=== PATIENT | male | born 1935 | race Caucasian/White ===

== ENCOUNTER 2019-09-13 09:20 | Day surgery (SDC) | payer MEDICARE, OTHER ==
[~2019-09-13] VITALS: Ht 177.8 cm; Wt 87.0 kg
[2019-09-13] MEDS ORDERED: DIPHENHYDRAMINE 50 MG/ML, 1ML ONE (09:59)
[2019-09-13] MEDS ORDERED: ATOR10TA9 PO (10:09)
[2019-09-13] MEDS ORDERED: FINA5TAB4 PO (10:09)
[2019-09-13] MEDS ORDERED: AMLO-150 PO (10:09)
[2019-09-13] MEDS ORDERED: FLUT9.9S NS (10:09)
[2019-09-13] MEDS ORDERED: FURO-93 PO (10:09)
[2019-09-13 10:10] LABS: BASOPHILS # (AUTO) 0.03 x10^3/uL (0-0.1); BASOPHILS % (AUTO) 1 % (0-1); EOSINOPHILS % (AUTO) 2 % (1-7); LYMPHOCYTES # (AUTO) 0.59 x10^3/uL (1-3.4); LYMPHOCYTES % (AUTO) 10 % (22-44); MD NO; MEAN CORPUSCULAR HEMOGLOBIN 32.2 pg (27.5-34.5); MEAN CORPUSCULAR HGB CONC 33.9 g/dL (33.2-36.2); MEAN CORPUSCULAR VOLUME 94.9 fL (81-97); MEAN PLATELET VOLUME 8.1 fL (7.4-10.4); MONOCYTES # (AUTO) 0.52 x10^3/uL (0.2-0.8); MONOCYTES % (AUTO) 9 % (2-9); NEUTROPHILS # (AUTO) 4.44 x10^3/uL (1.8-6.8); NEUTROPHILS % (AUTO) 78 % (42-75); PLATELET COUNT 253 x10^3/uL (130-400); RED BLOOD COUNT 3.97 x10^6/uL (4.38-5.82); RED CELL DISTRIBUTION WIDTH 13.7 % (9.4-14.8)
[2019-09-13] MEDS ORDERED: ALPR0.5T7 PO (10:10)
[2019-09-13] MEDS ORDERED: LINA145C PO (10:10)
[2019-09-13] MEDS ORDERED: CHOL10003 PO (10:10)
[2019-09-13] MEDS ORDERED: TAMS-11 PO (10:10)
[2019-09-13 10:21] LABS: ANION GAP 9 mmol/L (5-15); CALCIUM 9.1 mg/dL (8.5-10.1); CHLORIDE 111 mmol/L (98-107)
[2019-09-13] MEDS ORDERED: SODIUM CHLORIDE 0.9% 1,000 ML IV SCH (11:00)
[2019-09-13] MEDS ORDERED: FENTANYL PF 100 MCG/2ML ONE (11:25)
[2019-09-13] MEDS ORDERED: MIDAZOLAM 1 MG/ML, 2ML ONE (11:25)
[2019-09-13] MEDS ORDERED: LIDOCAINE 2%, 20ML ONE (12:40)
== END 2019-09-13 16:00 | disposition home or self-care (01) ==
LOC: CACL 09:20
PROVIDERS: ATTEND Internal Medicine Cardiovascular Disease
DX: R06.02 Shortness of breath (principal); I10 Essential (primary) hypertension; E78.2 Mixed hyperlipidemia; Z86.711 Personal history of pulmonary embolism; Z98.890 Other specified postprocedural states
CPT/HCPCS: 36415; 80048; 85025; 93451; 99156; 99157; C1769; C1894; J1200; J2250; J3010